=== PATIENT | female | born 1990 | race Caucasian/White ===

== ENCOUNTER 2018-10-06 05:26 | Inpatient (IN) ==
[2018-10-06] MEDS ORDERED: CeFAZolin Syr 3,000MG/30 ML 3,000 MG/30 ML SYRINGE IVPB ONE (06:22)
[2018-10-06] MEDS ORDERED: Ondansetron 4 MG/2 ML VIAL IVP PRN ×3 (06:22→12:51)
[2018-10-06] MEDS ORDERED: Famotidine 20 MG/2 ML VIAL IVP ONE (06:22)
[2018-10-06] MEDS ORDERED: Ringers Solution, Lactated 1,000 ML IVC ONE (06:22)
[2018-10-06] MEDS ORDERED: Metoclopramide 10 MG/2 ML VIAL IVP ONE (06:22)
[2018-10-06] MEDS ORDERED: Oxytocin 20 units/ LR 1000 mL 20 UNIT/1,000 ML BAG IVC ONE (06:22)
[2018-10-06] MEDS ORDERED: Naloxone 0.4 MG/ML INJ IVP PRN (06:22)
[2018-10-06] MEDS ORDERED: Ringers Solution, Lactated 1,000 ML IVC SCH (06:30)
[2018-10-06] MEDS ORDERED: Oxytocin 20 units/ LR 1000 mL 20 UNIT/1,000 ML BAG IVC SCH ×2 (06:30→12:51)
[2018-10-06] MEDS ORDERED: Ringers Solution, Lactated 1,000 ML ONE ×2 (06:34→08:03)
[2018-10-06 06:41] LABS: Basophils % 0.4 %; Eosinophils # 0.2 K/mcL (0.0-0.6); Eosinophils % 2.1 %; Hematocrit 33.5 % (35.3-44.9); Immature Granulocytes % 0.7 % (0-4); Lymphocytes % 21.9 %; Mean Corpuscular HGB Conc 32.8 g/dL (31.6-35.5); Mean Corpuscular Hemoglobin 29.5 pg (28.0-33.3); Mean Corpuscular Volume 89.8 fL (83.0-100.0); Mean Platelet Volume 9.8 fL (9.4-12.4); Monocytes # 0.7 K/mcL (0.0-1.3); Monocytes % 7.1 %; Neutrophils # 6.2 K/mcL (1.6-8.9); Platelet Count 210 K/mcL (140-400); Red Blood Count 3.73 M/mcL (3.82-4.97); Red Cell Distribution Width 13.2 % (11.5-14.5); Segmented Neutrophils % 67.8 %; White Blood Count 9.2 K/mcL (4.3-11.1)
--- NOTE | 2018-10-06 07:11 | Anesthesia Evaluation PreOp ---
Date of Encounter: 10/06/18 Time of Encounter: 07:09 - Past History Planned Operation: repeat c/s Cardiac History: HTN Pulmonary History: Denies Any Significant HX Other Medical History: Diabetes Type II (gestational), Other (anxiety, MO) Anesthesia History: No Prior Anesthetic Complications, Past Anesthesia (c/s, CTR, sinus) : Yes Test: Positive Alcohol Use: none Drug use: none Medications and Allergies Aspirin 81 mg PO DAILY 10/06/18 [History] Ferrous Sulfate 324 mg PO BID 10/06/18 [History] Labetalol 100 mg PO BID 10/06/18 [History] Formula Tablet 1 tab PO DAILY 10/06/18 [History] Allergy/AdvReac Type Severity Reaction Status Date / Time No Known Allergies Allergy Unverified 03/29/15 13:11 - Meds/Allergy Pre-op Review Medications Reviewed: Yes Allergies Reviewed: Yes Beta Blockers on Current Med List: Yes If Beta Blockers taken, Date/Time (Last Dose taken): 09/05 2099 Anesthesia Results - Labs 10/06/18 06:26 Anesthesia Exam 3060 80 16 fht 134 Height: 5'9" Weight: 139 NPO (# of Hours): 12 Pain Scale: 1 Pain Scale Used: Numeric (1 - 10) - HEENT Pupil (Motor): Pupils equal Mallampati: II Teeth: Normal Oral Opening: Greater than 3 - MANAGER OPERATIONS LOC: Oriented MANAGER OPERATIONS Motor: Normal RUE, Normal LUE, Normal RLE, Normal LLE, Normal Face MANAGER OPERATIONS Sensory: Normal: RUE, LUE, RLE, LLE, Face - Cardiac Rhythm: Regular Murmur: None - Pulmonary Breath Sounds: bilateral Clear Anesthesia Assess/Plan ASA Score: 3 (htn, MO, dm) Level of consciousness: Cooperative Anesthetic Plan: Spinal (risks discussed, questions answered, consented) Monitoring Plan: Standard Monitors Recovery Plan: PACU
[2018-10-06 07:12] LABS: Amphetamine Screen,Urine Negative ng/mL (Cutoff=1000); Barbiturate Screen,Urine Negative ng/mL (Cutoff=200); Benzodiazepines Screen,Urine Negative ng/mL (Cutoff=300); Cannabinoid Screen,Urine Negative ng/mL (Cutoff = 50); Cocaine Screen,Urine Negative ng/mL (Cutoff= 300); Opiate Screen,Urine Negative ng/mL (Cutoff=300); Phencyclidine Screen,Urine Negative ng/mL (Cutoff=25)
[2018-10-06] MEDS ORDERED: *HR* FentaNYL (PF) 100 MCG/2 ML VIAL ONE (07:17)
[2018-10-06] MEDS ORDERED: *HR* Morphine Sulfate/PF 10 MG/10 ML AMPUL ONE (07:17)
[2018-10-06] MEDS ORDERED: *HR* Oxytocin 10 UNIT/ML VIAL IM ONE (07:18)
[2018-10-06] MEDS ORDERED: Azithromycin 500 MG in D5% in Water 250 ML IVPB ONE (07:23)
--- NOTE | 2018-10-06 07:37 | History & Physical Report ---
Date of Encounter: 10/06/18 Time of Encounter: 07:35 24 Hour HP Update - Instructions Instructions: If the History and Physical is less than 30 days old and was completed prior to A.M. admission and or procedure and has NOT been updated on calendar day of procedure please complete this update prior to performing procedure. - Update Patient reports changes in Medical Condition: No Changes in examination, assessment, or condition: No Changes in Medication: No Preop tests/diagnostics Reviewed: Yes Consent for Planned Operative Procedure(s) Verified: Yes Review of Patient reveals the following changes:: Changed operative consent to be a bilateral salpingectomy instead of a bilateral partial salpingectomy. I believe this was an informed decision - Pre-Operative Checklist Preoperative Checklist Indicated: Yes Prophylactic Antibiotic Ordered: Yes Home Medications Include Beta Cody: Yes Beta Cody Taken Today (Day of Surgery): Yes Beta Cody Taken Yesterday (Day Prior to Surgery): Yes Is VTE Prophylaxis Indicated?: Yes
--- NOTE | 2018-10-06 08:19 | Anesthesia Procedures ---
Date of Encounter: 10/06/18 Time of Encounter: 08:17 Procedures: Anesthesia - Epidural/Spinal Patient ID/Chart reviewed: Yes Patient examined: Yes OB Eval: Gestational age: 39 OB Eval: : 2 OB Eval: Hx Para: 1 OB Eval: Dilated at (cm): 2 OB Eval: Contractions: Non-stressed pattern Consent Obtained: Yes Supplemental Oxygen: Nasal Cannula Supplemental Oxygen Rate (L/min): 3 Site Prep: Aseptic Technique, Sterile prep and drape, 0.5% Chlorhexidine/Alcohol Patient position: upright Local Anesthetic: Lidocaine 1% Amount of Local Anesthetic used: 3 Interspace Used: L2-L3 Loss of Resistance (UBALDO): No Blood: No CSF: Yes (clear x4 quads) Paresthesia: No Spinal Needle Gauge: 25 Spinal Dose: marcaine 12mg, duramorph 0.25mg, fentanyl 10mcg Procedure: ptic, tolerated well, VSS, effective Vitals + FHT's: Vital Signs/O2 Sat, Most Current Temp Pulse Resp BP 98.5 F 80 15 131/60 10/06/18 06:01 10/06/18 06:01 10/06/18 06:01 10/06/18 06:01
[2018-10-06] MEDS ORDERED: *HR* Phenylephrine 10 MG/ML VIAL ONE (08:22)
[2018-10-06] MEDS ORDERED: Acetaminophen IV 1,000 MG/100 ML INFUS..BTL IVPB ONE (08:27)
[2018-10-06] MEDS ORDERED: *HR* Meperidine 25 MG/ML SYRINGE IVP PRN (08:27)
[2018-10-06] MEDS ORDERED: *HR* HYDROmorphone (PF) 1 MG/ML SYRINGE IVP PRN (08:27)
--- NOTE | 2018-10-06 09:58 | OB/GYN Procedure Note ---
Section - Date of procedure: 10/06/18 Preop diagnosis: desires repeat , desires sterilization Post-op diagnosis: same Procedure: section, repeat low transverse, other (Bilateral salpingectomy) Surgeon: Doris Marie Blood Loss: 800 Was there an assistant store director present: No Anesthesiologist: Vasquez Malloy Social Worker Clinical: Cristo Rudd Anesthesia Type: Spinal section complications: none Disposition: L&D Recovery Room Specimens: Placenta, Right tube segment (Full length of fallopian tube), Left tube segment (Full length of fallopian tube) - (s) Infant A Infant Delivery Date: 10/06/18 Infant Delivery Time: :27 Presentation: vertex Position: unknown Gender: Male Viability: Viable Pounds: 8 Ounces: 8 Gram Weight: 3.865 kg at 1 minute: 9 at 5 minutes: 9 Shoulder Dystocia: not encountered Placenta: spontaneous, uterine exploration Cord: nuchal cord, 3 umbilical vessels, nuchal reduced - Narrative Narrative: The patient was taken to the operating room and spinal anesthesia was given and tested to be adequate for abdominal and pelvic surgery. She was prepped and draped in the usual sterile fashion. Timeout was completed. A Pfannenstiel skin incision was made through the existing scar. The subcutaneous layer was sharply dissected down to the fascia. The fascia was incised in the midline and extended bilaterally. 2 straight Joseph clamps were placed on the inferior fascial edge and the fascia was bluntly and sharply dissected away from the rectus muscles. This was repeated superiorly. The rectus muscles were bluntly dissected. Peritoneum was bluntly entered and then extended superiorly and inferiorly. Anterior vaginal wall was checked to be free of adhesions. Good hemostasis noted. The Bladder blade was placed to protect the bladder. Vesicouterine peritoneum was incised and reflected inferiorly and the bladder blade was replaced to protect the bladder. A low transverse incision was then made through the lower uterine segment down to the amnion. This was bluntly extended bilaterally. The amnion was bluntly entered. This was followed by the vertex delivery of a viable and vigorous infant weighing _8_#_8_oz with Apgars of _9/_9. Infant was placed on the maternal abdomen. The cord was clamped and cut after a delay. Infant was handed to the nursery care team. The placenta was delivered spontaneous and intact then the uterine cavity was digitally palpated and wiped clean with a moist lap sponge. There were no placental remnants identified. Clamps were placed on the uterine angles and the uterine incision was closed using 0 Vicryl suture in a running, locking fashion. A second imbricating layer completed the uterine closure with 0 Vicryl suture. Good hemostasis achieved. Gloves were changed. Attention was then placed on the fallopian tubes. The tubes and ovaries appeared grossly normal bilaterally. The left fallopian tube was grasped with a [place] clamp. Hemostat was then used to grasp the fallopian tube along the mesosalpinx hugging the fallopian tube. After cautery was then applied with the Bovie to the fallopian tube for about 2 cm segment. Good hemostasis was achieved and this length of tube was then excised from the Bovie. This was repeated along the full length of the fallopian tube until it was completely free. The tube was then excised and sent to pathology. Good hemostasis is noted along the full length of the excision. This was repeated for the patient's right side. The most proximal portion of the fallopian tube was not hemostatic with the Bovie and 3-0 Vicryl was used to reinforce this with a running locking suture. Again good hemostasis was confirmed along the full length of the specimen. The uterus was then examined a nd several [id number] sutures were placed for hemostasis. The pelvis was then irrigated with sterile water. Again good hemostasis was identified. The peritoneal edges and rectus muscles were then examined and hemostasis achieved. Hugo was placed down along the bladder and uterine incisional area after hemostasis was confirmed. The rectus muscles were visualized and found to be hemostatic. The fascia was then closed using 0 PDS loop in a running nonlocking fashion. Subcutaneous tissue was irrigated with sterile water, good hemostasis was achieved. The skin was then closed using a 4-0 Monocryl in a running subcuticular fashion. The incision was then reinforced Dermabond mesh closure. Good hemostasis was noted. Estimated blood loss was 800cc. The Bianchi was noted to be draining clear yellow urine at the end of the procedure. All sponge and instrument counts are correct at the end of the procedure. The patient was taken to the recovery room in stable condition.
[2018-10-06] MEDS ORDERED: Metoclopramide 10 MG/2 ML VIAL IVP PRN (12:51)
[2018-10-06] MEDS ORDERED: Simethicone 80 MG TAB.CHEW PO PRN (12:51)
--- NOTE | 2018-10-06 13:04 | Anesthesia Evaluation Post Op ---
Date of Encounter: 10/06/18 Time of Encounter: 13:01 - Vital Signs Vital Signs: Vital Signs/O2 Sat/Glucose, Most Current Temp Pulse Resp BP Pulse Ox 10/06/18 12:47 97.6 F 67 16 100/54 96 10/06/18 12:13 97.9 F 69 16 93/58 96 - Lungs Lungs: Clear Ascult./Percussion - Airway Airway: Non-obstructed - Cardiovascular Regular Rate - Mental Status Mental Status: Alert & Oriented, Answers Appropriately - Pain Pain Scale: 2 Pain Scale used: Numeric (1 - 10) - Nausea Vomiting Nausea Vomiting: Not Present - Hydration Hydration: Tolerates oral liquids, Bianchi catheter Notes: 10/06/18 13:02 fully awake, minimal pain, some itching, VSS, no anesthetic complications - Discharge PostOp Status: Transfer Patient to floor
[2018-10-06] MEDS: metroNIDAZOLE 500 MG TABLET PO SCH ×2 (14:54→20:07)
[2018-10-06] MEDS: Acetaminophen 325 MG TABLET PO SCH ×2 (14:54→18:21)
[2018-10-06] MEDS: cephALEXin 500 MG CAPSULE PO SCH ×2 (14:55→20:07)
[2018-10-06] MEDS: Ibuprofen 600 MG TABLET PO SCH ×2 (15:06→18:20)
[2018-10-07] MEDS: Acetaminophen 325 MG TABLET PO SCH ×4 (00:18→22:53)
[2018-10-07] MEDS: Ibuprofen 600 MG TABLET PO SCH ×4 (00:18→17:54)
[2018-10-07] MEDS: *HR* OxyCODONE Immed Rel 5 MG TABLET PO PRN ×4 (04:03→19:30)
[2018-10-07 05:58] LABS: Basophils % 0.2 %; Eosinophils # 0.2 K/mcL (0.0-0.6); Eosinophils % 1.3 %; Hemoglobin 10.4 g/dL (11.5-15.4); Immature Granulocytes % 0.5 % (0-4); Lymphocytes % 6.5 %; Mean Corpuscular HGB Conc 33.5 g/dL (31.6-35.5); Mean Corpuscular Hemoglobin 30.2 pg (28.0-33.3); Mean Corpuscular Volume 90.1 fL (83.0-100.0); Mean Platelet Volume 9.7 fL (9.4-12.4); Monocytes # 1.3 K/mcL (0.0-1.3); Monocytes % 8.2 %; Neutrophils # 13.1 K/mcL (1.6-8.9); Platelet Count 174 K/mcL (140-400); Red Blood Count 3.44 M/mcL (3.82-4.97); Red Cell Distribution Width 13.1 % (11.5-14.5); Segmented Neutrophils % 83.3 %
[2018-10-07 05:59] LABS: White Blood Count 15.7 K/mcL (4.3-11.1)
[2018-10-07] MEDS: metroNIDAZOLE 500 MG TABLET PO SCH ×2 (09:32→22:53)
[2018-10-07] MEDS: Prenatal Vit/FA 1 EACH TABLET PO SCH (09:32)
[2018-10-07] MEDS: cephALEXin 500 MG CAPSULE PO SCH ×2 (09:32→22:54)
--- NOTE | 2018-10-07 10:18 | OB/GYN Progress Note ---
Date of Encounter: 10/07/18 Time of Encounter: 10:16 - Assessment and Plan (1) Status post repeat low transverse section Current Visit: Yes Status: Acute Continue routine postop/ care anticipate discharge home tomorrow (2) Status post tubal ligation Current Visit: Yes Status: Acute continue routine postop care (3) Breast feeding status of mother Current Visit: Yes Status: Acute support prn Subjective - Subjective Principal diagnosis: Postop/ day 1 Interval history: Patient is doing well. Meeting day 1 milestones. Patient reports passing flatus denies bowel movement. Infant is currently in the nursery for testing. She is breast feeding male . Patient reports: appetite normal, voiding normally, pain well controlled, ambulating normally [place]: doing well, nursing well Objective - Vital Signs Latest vital signs: Vital Signs Temp Pulse Resp BP Pulse Ox 10/07/18 07:50 98.5 F 80 16 122/65 96 10/07/18 04:10 98.1 F 84 16 110/62 96 10/07/18 00:00 98.2 F 84 16 125/67 98 10/06/18 20:20 98.7 F 85 15 134/68 100 10/06/18 15:15 98.4 F 75 16 117/60 10/06/18 14:15 97.8 F 69 14 117/59 98 10/06/18 13:10 98.1 F 76 14 108/52 98 10/06/18 12:47 97.6 F 67 16 100/54 96 10/06/18 12:13 97.9 F 69 16 93/58 96 Intake and Output 10/06/18 10/07/18 10/07/18 23:59 07:59 15:59 Intake Total 480 / 1280 1000 / 1360 360 / 1360 Output Total 400 / 1325 2000 / 2400 400 / 2400 Balance 80 / -45 -1000 / -1040 -40 / -1040 Intake: Oral 480 / 1280 1000 / 1360 360 / 1360 Output: Urine 2000 / 2400 400 / 2400 Catheter 400 / 825 Other: Meal Dinner Breakfast Percent of Meal Consumed 90% 100% Weight 137.438 kg Patient Weight 10/07/18 23:59 Weight 137.438 kg - Exam Lungs: bilateral: normal Chest: Normal S1, Normal S2 Extremities: Present: normal Abdomen: Present: normal appearance, soft, gravid Incision: Present: normal, dry, intact Uterus: Present: normal, firm Fundal Height: 2 (U/2) - Labs Labs: Laboratory Results - last 24 hr 10/07/18 05:41 WBC 15.7 H D RBC 3.44 L Hgb 10.4 L Hct 31.0 L MCV 90.1 MCH 30.2 MCHC 33.5 RDW 13.1 Plt Count 174 MPV 9.7 Immature Gran % 0.5 Seg Neutrophils % 83.3 Lymphocytes % 6.5 Monocytes % 8.2 Eosinophils % 1.3 Basophils % 0.2 Neutrophils # 13.1 H Lymphocytes # 1.0 Monocytes # 1.3 Eosinophils # 0.2 Basophils # 0.0
[2018-10-07] MEDS ORDERED: *HR* OxyCODONE Immed Rel 5 MG TABLET PO PRN (18:58)
[2018-10-08] MEDS: *HR* OxyCODONE Immed Rel 5 MG TABLET PO PRN ×3 (00:36→08:54)
[2018-10-08] MEDS: Ibuprofen 600 MG TABLET PO SCH ×2 (00:36→08:54)
[2018-10-08] MEDS ORDERED: *HR* OxyCODONE Immed Rel 5 MG TABLET PO PRN (00:45)
[2018-10-08] MEDS ORDERED: Lanolin 7 G OINT...G. TP PRN (04:36)
[2018-10-08 08:00] VITALS: BP 103/63
[2018-10-08] MEDS: Prenatal Vit/FA 1 EACH TABLET PO SCH (08:54)
[2018-10-08] MEDS: Acetaminophen 325 MG TABLET PO SCH (08:55)
[2018-10-08] MEDS: cephALEXin 500 MG CAPSULE PO SCH (08:56)
[2018-10-08] MEDS: metroNIDAZOLE 500 MG TABLET PO SCH (08:56)
--- NOTE | 2018-10-08 10:24 | Discharge Summary ---
Date of Encounter: 10/08/18 Time of Encounter: 10:17 - Discharge Diagnosis (1) Acute blood loss as cause of postoperative anemia Priority: Secondary Status: Acute Comments: Continue iron supplementation 2 weeks (2) Breast feeding status of mother Priority: Secondary Status: Acute Comments: Community resources provided (3) Status post repeat low transverse section Priority: Primary Status: Acute Comments: Feeling well Tolerating regular diet Pain well-controlled with by mouth pain meds Ambulating independently Voiding independently Lochia light Passing flatus, no BM yet Vital signs stable Discharge home today (4) Status post tubal ligation Priority: Secondary Status: Acute - Discharge Medications Prescriptions: New Docusate [Colace] 100 mg PO BID #30 capsule Ferrous Sulfate 325 mg PO 0800 #14 tablet Lanolin [Lansinoh] 1 appl TP TID PRN oint...g. PRN Reason: Sore Nipples Ibuprofen [Motrin] 600 mg PO Q6HR #30 tablet Oxycodone HCl/Acetaminophen [Percocet 5-325 mg Tablet] 1 each PO Q6H PRN 5 Days #20 tablet PRN Reason: Moderate Pain Acetaminophen [Tylenol] 325 mg PO Q6HR tablet Continued Ferrous Sulfate 324 mg PO BID Formula Tablet 1 tab PO DAILY Discontinued Aspirin 81 mg PO DAILY Labetalol 100 mg PO BID Home Medications: Ferrous Sulfate 324 mg PO BID 10/06/18 [History] Formula Tablet 1 tab PO DAILY 10/06/18 [History] Acetaminophen [Tylenol] 325 mg PO Q6HR tablet 10/08/18 [Rx] Docusate [Colace] 100 mg PO BID #30 capsule 10/08/18 [Rx] Ferrous Sulfate 325 mg PO 0800 #14 tablet 10/08/18 [Rx] Ibuprofen [Motrin] 600 mg PO Q6HR #30 tablet 10/08/18 [Rx] Lanolin [Lansinoh] 1 appl TP TID PRN oint...g. 10/08/18 [Rx] Oxycodone HCl/Acetaminophen [Percocet 5-325 mg Tablet] 1 each PO Q6H PRN 5 Days #20 tablet 10/08/18 [Rx] Allergies/Adverse Reactions: Allergy/AdvReac Type Severity Reaction Status Date / Time No Known Allergies Allergy Unverified 03/29/15 13:11 Data Procedures and tests throughout hospitalization: Laboratory Tests 10/06/18 10/06/18 10/07/18 06:26 06:52 05:41 WBC 9.2 15.7 H D RBC 3.73 L 3.44 L Hgb 11.0 L 10.4 L Hct 33.5 L 31.0 L MCV 89.8 90.1 MCH 29.5 30.2 MCHC 32.8 33.5 RDW 13.2 13.1 Plt Count 210 174 MPV 9.8 9.7 Immature Gran % 0.7 0.5 Seg Neutrophils % 67.8 83.3 Lymphocytes % 21.9 6.5 Monocytes % 7.1 8.2 Eosinophils % 2.1 1.3 Basophils % 0.4 0.2 Neutrophils # 6.2 13.1 H Lymphocytes # 2.0 1.0 Monocytes # 0.7 1.3 Eosinophils # 0.2 0.2 Basophils # 0.0 0.0 Urine Opiates Screen Negative Ur Buprenorphine Scrn Negative Ur Barbiturates Screen Negative Ur Phencyclidine Scrn Negative Ur Amphetamines Screen Negative U Benzodiazepines Scrn Negative Urine Cocaine Screen Negative U Marijuana (THC) Screen Negative Ur Drug Screen Interp See Below Date of admission: 10/06/18 05:26 Primary care physician: Denise Esparza CNP Discharging clinician: Page Chester Anticipated date of discharge: 10/08/18 - Patient Status Disposition: Home, Self-Care Condition: Good Functional capacity at discharge: independent ambulation Overall status at discharge: patient is progressing back to baseline - Discharge Instructions Follow Up With: Denise Esparza CNP [Primary Care Provider] - Doris Voss MD [Partnered Physician] - - Diet and Activity Activity: increase activity as tolerated Diet: regular diet Hospital Course Reason for admission: section, IUP at term Delivery: section Episiotomy: none Laceration: none Other procedures: tubal ligation complications: none Discharge diagnosis: IUP at term delivered [place] baby: male Time Attestation: Total time spent providing and/or coordinating discharge services: Time Spent: Less than 30 minutes - VTE Reasons for not Prescribing Prophylaxis: Treatment not Indicated - Low risk for VTE Documentation of Mechanical Device: Intermittent pneumatic compression device Exam - Constitutional Vitals: Temp Pulse Resp BP Pulse Ox 97.9 F 66 16 103/63 99 10/08/18 07:59 10/08/18 07:59 10/08/18 07:59 10/08/18 07:59 10/08/18 07:59 General appearance IM: A&O X 3, morbidly obese, pleasant, answers questions appropriately - Respiratory Respiratory exam: Present: CTAB - Cardiovascular Cardiovascular exam IM: Present: RRR, +S1, +S2 - GI/Abdominal GI/Abdominal exam IM: normal bowel sounds, no peritoneal signs - Rectal Rectal exam: deferred - Uterine Tone: Firm Uterus Position: 2 Fingers Below Umbilicus, Midline - Extremities Exam Extremities exam IM: Present: full ROM, normal capillary refill, normal inspection, radial pulses palpable and symmetrical - Neurological Exam Neurological exam: alert, CN II-XII intact, normal gait, oriented X3, reflexes normal, no focal deficits, strengths equal and symetr throughout - Psychiatric Additional comments: Signs and symptoms of depression discussed with patient and family and they all verbalized understanding of when to seek help
== END 2018-10-08 12:00 | disposition home or self-care (01) | DRG 784 ==
LOC: 1NENULAB 05:26 → 1NENUOBS 12:19
PROVIDERS: ADMIT Obstetrics & Gynecology; ATTEND Obstetrics & Gynecology